=== PATIENT | male | born 1975 | race Caucasian/White ===

== ENCOUNTER 2021-03-21 13:11 | Emergency (ER) | payer OTHER ==
--- NOTE | 2021-03-21 13:59 | EDM.PDOC ---
ED HPI GENERAL MEDICAL PROBLEM - General Chief Complaint: Cardiovascular Problem Stated Complaint: IRREGULAR HEART BEAT Time Seen by Provider: 03/21/21 13:53 Source of Information: Reports: Patient, RN Notes Reviewed History Limitations: Reports: No Limitations - History of Present Illness INITIAL COMMENTS - FREE TEXT/NARRATIVE: 45-year-old gentleman presents emergency department with a complaint of chest discomfort and palpitations states he awoke this morning could feel his heart was beating irregularly, he also describes some vague chest pressure on the left side of his chest, no history of coronary artery disease no nausea no shortness of breath no diaphoresis. Does consume a moderate amount of caffeine Left Chest Pain Score (Numeric/FACES): 4 - Related Data Allergies Allergy/AdvReac Type Severity Reaction Status Date / Time No Known Allergies Allergy Verified 03/21/21 13:34 Home Meds: Home Meds Meloxicam 15 mg PO 03/21/21 [History] Past Medical History - Past Surgical History Musculoskeletal Surgical History: Reports: Carpal Tunnel Social & Family History - Tobacco Use Tobacco Use Status *Q: Never Tobacco User - Caffeine Use Caffeine Use: Reports: Coffee - Alcohol Use Days Per Week of Alcohol Use: 1 Number of Drinks Per Day: 2 Total Drinks Per Week: 2 - Recreational Drug Use Recreational Drug Use: No ED ROS GENERAL - Review of Systems Review Of Systems: See Below Constitutional: Reports: No Symptoms HEENT: Reports: No Symptoms Respiratory: Reports: No Symptoms Cardiovascular: Reports: Chest Pain, Palpitations GI/Abdominal: Reports: No Symptoms ED EXAM, GENERAL - Physical Exam Exam: See Below Exam Limited By: No Limitations General Appearance: Alert, WD/WN, No Apparent Distress Respiratory/Chest: No Respiratory Distress, Lungs Clear, Normal Breath Sounds, No Accessory Muscle Use, Chest Non-Tender Cardiovascular: Regular Rate, Rhythm, No Murmur GI/Abdominal: Soft, Non-Tender Extremities: No Pedal Edema #1 Interpretation EKG Date: 03/21/21 Time: 14:40 Rhythm: NSR [place]: Normal P-Wave: Present QRS: Normal ST-T: Normal QT: Normal Comparison: NA - No Prior EKG EKG Interpretation Comments: Multiple PVCs Course - Vital Signs Last Recorded V/S: Last Vital Signs Temp 98.8 F 03/21/21 13:27 Pulse 84 03/21/21 13:27 Resp 19 03/21/21 13:27 BP 127/76 03/21/21 13:27 Pulse Ox 99 03/21/21 13:27 - Orders/Labs/Meds Orders: Active Orders 24 hr Category Date Time Status Cardiac Monitoring [RC] .As Directed Care 03/21/21 13:57 Active EKG Documentation Completion [RC] ASDIRECTED Care 03/21/21 13:57 Active Chest 1V Frontal [CR] Stat Exams 03/21/21 13:57 Taken EKG 12 Lead [EK] Stat Ther 03/21/21 13:57 Ordered Labs: Laboratory Tests 03/21/21 03/21/21 Range/Units 14:05 14:05 WBC 5.0 (4.5-11.0) K/uL RBC 5.35 (4.30-5.90) M/uL Hgb 16.4 H (12.0-15.0) g/dL Hct 46.2 (40.0-54.0) % MCV 86 (80-98) fL MCH 31 (27-31) pg MCHC 36 (32-36) % Plt Count 225 (150-400) K/uL Neut % (Auto) 69.3 H (36-66) % Lymph % (Auto) 21.5 L (24-44) % [place] % (Auto) 6.8 H (2-6) % Eos % (Auto) 1.4 L (2-4) % Baso % (Auto) 1.0 (0-1) % Sodium 143 (140-148) mmol/L Potassium 4.6 (3.6-5.2) mmol/L Chloride 105 (100-108) mmol/L Carbon Dioxide 27 (21-32) mmol/L Anion Gap 11.4 (5.0-14.0) mmol/L BUN 14 (7-18) mg/dL Creatinine 0.9 (0.8-1.3) mg/dL Est Cr Clr Drug Dosing 109.23 mL/min Estimated GFR (MDRD) > 60 (>60) Glucose 109 H (74-106) mg/dL Calcium 9.0 (8.5-10.1) mg/dL Troponin I < 0.017 (0.000-0.056) ng/mL Departure - Departure Time of Disposition: 15:01 Disposition: Home, Self-Care 01 Condition: Fair Clinical Impression: PVC (premature ventricular contraction) Instructions: Premature Ventricular Contraction Referrals: Edyta Garcia NP [Primary Care Provider] - Forms: ED Department Discharge Additional Instructions: Try reduction in caffeine please follow-up with your primary care in the next 5 to 7 days for reevaluation call return to the emergency department worsening of symptoms Sepsis Event Note (ED) - Evaluation Sepsis Screening Result: No Definite Risk - Focused Exam Vital Signs: Vital Signs Temp Pulse Resp BP Pulse Ox 03/21/21 13:27 98.8 F 84 19 127/76 99 - My Orders Last 24 Hours: My Active Orders 03/21/21 13:57 Cardiac Monitoring [RC] .As Directed EKG Documentation Completion [RC] ASDIRECTED Chest 1V Frontal [CR] Stat EKG 12 Lead [EK] Stat - Assessment/Plan Last 24 Hours: My Active Orders 03/21/21 13:57 Cardiac Monitoring [RC] .As Directed EKG Documentation Completion [RC] ASDIRECTED Chest 1V Frontal [CR] Stat EKG 12 Lead [EK] Stat Plan: Assessment Acuity = acute Site and laterality = premature ventricular contractions Etiology = probably related to caffeine intake Manifestations = palpitations Location of injury = Home Lab values = CBC BMP unremarkable EKG demonstrates PVCs chest x-ray I did review films myself I cannot appreciate any acute process, the official read from radiology is pending Plan He is going to try reducing his caffeine intake follow-up with primary care in 5 to 7 days for evaluation This note was dictated using [employer] voice recognition software please call with any questions on syntax or grammar.
--- NOTE | 2021-03-24 13:47 | CR ---
CHEST: Portable 03/21/2021 at 2:58 PM CLINICAL HISTORY:Chest pain COMPARISON:None FINDINGS: The heart size, pulmonary vascularity and hilar structures are normal. No infiltrate effusion or pneumothorax is seen. IMPRESSION: No acute cardiopulmonary process.
== END 2021-03-21 15:16 | disposition home or self-care (01) ==
LOC: JP.ED 13:11
DX: I49.3 Ventricular premature depolarization (principal)
CPT/HCPCS: 36415; 71045; 71045-26; 80048; 84484; 85025; 93005; 99284; 99285-25

== ENCOUNTER 2022-05-21 14:29 | Emergency (ER) | payer OTHER ==
[2022-05-21] MEDS ORDERED: Aspirin 81 MG Tab.Chew PO ONE (15:05)
[2022-05-21] MEDS ORDERED: Morphine 4 MG/ML Syringe IVPUSH PRN (15:05)
[2022-05-21] MEDS ORDERED: Nitroglycerin 0.4 MG Tab.SL SL PRN (15:05)
[2022-05-21 15:43] LABS: ESTIMATED GFR 106 mL/min (>60); TROPONIN I HIGH SENSITIVITY 5.9 pg/mL (<=60.3)
[2022-05-21] MEDS ORDERED: Alum Hydrox/Mag Hydrox/Simeth 15 ML, Lidocaine 2% 15 ML PO ONE ×2 (16:09)
[2022-05-21] MEDS ORDERED: Ketorolac 30 MG/ML SDV IVPUSH ONE (17:13)
== END 2022-05-21 20:05 | disposition home or self-care (01) ==
LOC: JP.ED 14:29
DX: R07.89 Other chest pain (principal); Z79.899 Other long term (current) drug therapy; Z86.16 Personal history of COVID-19
CPT/HCPCS: 36415; 71045; 71250; 80053; 84484; 85025; 85379; 93005; 96374; 96375; 99285; A9270; J1885; J2270; 93010; 99283